=== PATIENT | female | born 1970 | race Caucasian/White ===

== ENCOUNTER → 2017-12-25 07:28 | Outpatient (CLI) | payer OTHER, SELFPAY ==
[2017-12-25 08:06] LABS: Basophils % 0.6 % (0.1-2.0); Eosinophils # 0.1 K/mm3 (0.0-0.4); Eosinophils % 1.7 % (0.1-12.0); Hematocrit 48.6 % (37.0-47.0); Hemoglobin 15.2 g/dL (12.2-16.2); Lymphocytes # 3.1 K/mm3 (0.7-4.5); Lymphocytes % 46.2 K/mm3 (10-50); Mean Corpuscular HGB Conc 31.3 g/dL (31.8-35.4); Mean Corpuscular Hemoglobin 30.1 pg (27.0-31.2); Mean Platelet Volume 8.7 fl (7.4-10.4); Monocytes # 0.3 K/mm3 (0.1-1.0); Monocytes % 4.9 % (1.7-9.3); Neutrophils # 3.2 K/mm3 (1.8-7.8); Neutrophils % 46.7 % (37.0-80.0); Platelet Count 245 K/mm3 (142-424); Red Blood Count 5.06 M/mm3 (4.20-5.40); Red Cell Distribution Width 13.1 % (11.5-17.5); White Blood Count 6.7 K/mm3 (4.8-10.8)
[2017-12-25 08:33] LABS: Alanine Aminotransferase 17 U/L (12-78); Albumin Level 3.9 gm/dL (3.4-5.0); Albumin/Globulin Ratio 1.3 (1.1-1.8); Alkaline Phosphatase 59 U/L (46-116); Anion Gap 11.5 mEq/L (5-15); Aspartate Amino Transferase 14 U/L (15-37); Bilirubin,Total 0.2 mg/dL (0.2-1.0); Blood Urea Nitrogen 17 mg/dL (7-18); Calcium 8.9 mg/dL (8.5-10.1); Carbon Dioxide 28 mmol/L (21.0-32.0); Chloride 105 mmol/L (98-107); Chol/HDL Ratio 4.9 (1-3.5); Cholesterol 263 mg/dL (140-200); Creatinine,Serum 0.89 mg/dL (0.55-1.02); Estimated Glomerular Filt Rate 68 ml/min (>60); GFR (African American) 83 ML/MIN (>60); Globulin 3.1 gm/dl (1.3-3.2); Glucose 93 mg/dL (74-106); HDL Cholesterol 54 mg/dL (29-89); LDL Cholesterol 194 mg/dL (0-130); Potassium 4.5 mmoL/L (3.5-5.1); Sodium 140 mmol/L (136-145); Triglycerides 74 mg/dL (30-200); VLDL Cholesterol 15 mg/dL (0-40)
[2017-12-26 20:05] LABS: Vitamin B12 250 pg/mL (232-1245); Vitamin D 25 Hydroxy 16.5 ng/mL (30.0-100.0)
== END ==
PROVIDERS: Referring Provider Internal Medicine Adolescent Medicine; Visit Provider Internal Medicine Adolescent Medicine
DX: Z00.00 Encounter for general adult medical examination without abnormal findings (principal); E53.8 Deficiency of other specified B group vitamins; E55.9 Vitamin D deficiency, unspecified
CPT/HCPCS: 36415; 80053; 80061; 82607; 82652; 85025

== ENCOUNTER → 2017-12-26 12:56 | Outpatient (CLI) | payer OTHER, SELFPAY ==
--- NOTE | 2017-12-26 | XR_ITS ---
XR knee RT 3V HISTORY: ITS.REASON: RT ANTERIOR KNEE PAIN ORDERING PHYSICIAN: Rigoberto Gonzales MD PATIENT AGE: 47 years COMPARISON: None FINDINGS: No fracture or dislocation. No lytic or blastic change. Normal mineralization. No significant arthritic changes evident. No other significant findings IMPRESSION: Negative Knee
== END ==
PROVIDERS: PCP Internal Medicine Adolescent Medicine; Visit Provider Internal Medicine Adolescent Medicine
DX: M25.561 Pain in right knee (principal)
CPT/HCPCS: 73562

== ENCOUNTER → 2018-04-24 07:10 | Outpatient (CLI) | payer OTHER, SELFPAY ==
[2018-04-24 08:13] LABS: Basophils % 0.5 % (0.1-2.0); Eosinophils # 0.2 K/mm3 (0.0-0.4); Eosinophils % 2.2 % (0.1-12.0); Hematocrit 44.1 % (37.0-47.0); Hemoglobin 14.1 g/dL (12.2-16.2); Lymphocytes # 2.9 K/mm3 (0.7-4.5); Lymphocytes % 40.6 K/mm3 (10-50); Mean Corpuscular Hemoglobin 30.4 pg (27.0-31.2); Mean Corpuscular Volume 94.9 fl (81-99); Mean Platelet Volume 8.7 fl (7.4-10.4); Monocytes # 0.3 K/mm3 (0.1-1.0); Monocytes % 4.6 % (1.7-9.3); Neutrophils # 3.7 K/mm3 (1.8-7.8); Platelet Count 228 K/mm3 (142-424); Red Blood Count 4.64 M/mm3 (4.20-5.40); Red Cell Distribution Width 12.9 % (11.5-17.5); White Blood Count 7.2 K/mm3 (4.8-10.8)
[2018-04-24 08:50] LABS: Alanine Aminotransferase 24 U/L (12-78); Albumin Level 4.2 gm/dL (3.4-5.0); Albumin/Globulin Ratio 1.4 (1.1-1.8); Alkaline Phosphatase 67 U/L (46-116); Anion Gap 12.4 mEq/L (5-15); Aspartate Amino Transferase 17 U/L (15-37); Bilirubin,Total 0.4 mg/dL (0.2-1.0); Blood Urea Nitrogen 16 mg/dL (7-18); Carbon Dioxide 29 mmol/L (21.0-32.0); Chloride 104 mmol/L (98-107); Chol/HDL Ratio 2.5 (1-3.5); Cholesterol 161 mg/dL (140-200); Estimated Glomerular Filt Rate 77 ml/min (>60); GFR (African American) 93 ML/MIN (>60); Globulin 3.1 gm/dl (1.3-3.2); Glucose 86 mg/dL (74-106); HDL Cholesterol 64 mg/dL (29-89); LDL Cholesterol 88 mg/dL (0-130); Potassium 4.4 mmoL/L (3.5-5.1); Sodium 141 mmol/L (136-145); Total Protein,Serum 7.3 gm/dL (6.4-8.2); Triglycerides 44 mg/dL (30-200); VLDL Cholesterol 9 mg/dL (0-40)
[2018-04-25 10:21] LABS: Vitamin B12 464 pg/mL (232-1245); Vitamin D 25 Hydroxy 78.8 ng/mL (30.0-100.0)
== END ==
PROVIDERS: PCP Internal Medicine Adolescent Medicine; Visit Provider Internal Medicine Adolescent Medicine
DX: Z00.00 Encounter for general adult medical examination without abnormal findings (principal); E78.5 Hyperlipidemia, unspecified; E53.8 Deficiency of other specified B group vitamins; E55.9 Vitamin D deficiency, unspecified
CPT/HCPCS: 36415; 80053; 80061; 82607; 82652; 85025

== ENCOUNTER → 2019-01-01 12:05 | Outpatient (CLI) | payer BC, SELFPAY ==
--- NOTE | 2019-01-01 12:14 | XR_ITS ---
XR ribs LT 2V HISTORY: ORDERING PHYSICIAN: Rigoberto Gonzales MD PATIENT AGE: 48 years Comparison: None FINDINGS: Bone density is normal without acute fracture, pleural effusion or pneumothorax. Impression: Normal plain film exam of the left ribs.
--- NOTE | 2019-01-01 12:14 | XR_ITS ---
XR ribs RT 2V HISTORY: ITS.REASON: S/P FALL, STERNAL PAIN, CHEST WALL PAIN ORDERING PHYSICIAN: Rigoberto Gonzales MD PATIENT AGE: 48 years Comparison: None FINDINGS: Bone density is normal without acute fracture and there is no evidence of pleural effusion or pneumothorax. Impression: Normal plain film exam of the right ribs.
--- NOTE | 2019-01-01 12:14 | XR_ITS ---
XR sternum min 2V CLINICAL INDICATION: ITS.REASON: S/P FALL, STERNAL PAIN, CHEST WALL PAIN ORDERING PHYSICIAN: Rigoberto Gonzales MD PATIENT AGE: 48 years Comparison: None FINDINGS: Bone density appears normal. There is subtle haziness over the xiphoid process area on the lateral view and part of this is related to the extrathoracic soft tissues related to the breast. There is no definite osseous lesion or fracture. On the oblique views the sternoclavicular joint areas appear to be normal. IMPRESSION: No definite plain film abnormality of the sternum although there is some haziness over the xiphoid area the lateral view likely from extrathoracic soft tissues. If symptoms persist however consider CT scan of the sternum if necessary.
--- NOTE | 2019-01-01 12:14 | XR_ITS ---
XR chest 2V HISTORY: ITS.REASON: S/P FALL, STERNAL PAIN, CHEST WALL PAIN ORDERING PHYSICIAN: Rigoberto Gonzales MD PATIENT AGE: 48 years COMPARISON: 11/20/2012. FINDINGS: The cardiomediastinal silhouette and pulmonary vascularity are within normal limits. The lungs are clear without infiltrates, suspicious nodules, or pleural effusions. No acute bony abnormalities. IMPRESSION: Negative chest, no acute finding
== END ==
PROVIDERS: PCP Internal Medicine Adolescent Medicine; Visit Provider Internal Medicine Adolescent Medicine
DX: R07.89 Other chest pain (principal)
CPT/HCPCS: 71046; 71100; 71120

== ENCOUNTER → 2019-05-31 10:08 | Outpatient (CLI) | payer BC, SELFPAY ==
[2019-05-31 10:44] LABS: Basophils % 0.4 % (0.1-2.0); Eosinophils # 0.1 K/mm3 (0.0-0.4); Eosinophils % 1.1 % (0.1-12.0); Hematocrit 44.4 % (37.0-47.0); Hemoglobin 14.2 g/dL (12.2-16.2); Lymphocytes # 2.8 K/mm3 (0.7-4.5); Mean Corpuscular Hemoglobin 31.2 pg (27.0-31.2); Mean Corpuscular Volume 97.6 fl (81-99); Mean Platelet Volume 8.5 fl (7.4-10.4); Monocytes # 0.2 K/mm3 (0.1-1.0); Monocytes % 3.5 % (1.7-9.3); Neutrophils # 3.7 K/mm3 (1.8-7.8); Platelet Count 240 K/mm3 (142-424); Red Blood Count 4.55 M/mm3 (4.20-5.40); Red Cell Distribution Width 12.9 % (11.5-17.5); White Blood Count 6.8 K/mm3 (4.8-10.8)
[2019-05-31 11:41] LABS: Alanine Aminotransferase 23 U/L (12-78); Albumin/Globulin Ratio 1.4 (1.1-1.8); Alkaline Phosphatase 61 U/L (46-116); Anion Gap 10.5 mEq/L (5-15); Aspartate Amino Transferase 21 U/L (15-37); Bilirubin,Total 0.4 mg/dL (0.2-1.0); Blood Urea Nitrogen 16 mg/dL (7-18); Calcium 9.1 mg/dL (8.5-10.1); Carbon Dioxide 29 mmol/L (21.0-32.0); Chloride 104 mmol/L (98-107); Chol/HDL Ratio 2.5 (1-3.5); Cholesterol 164 mg/dL (140-200); Creatinine,Serum 0.85 mg/dL (0.55-1.02); Estimated Glomerular Filt Rate 71 ml/min (>60); GFR (African American) 86 ML/MIN (>60); Globulin 2.9 gm/dl (1.3-3.2); Glucose 85 mg/dL (74-106); HDL Cholesterol 65 mg/dL (29-89); LDL Cholesterol 89 mg/dL (0-130); Potassium 4.5 mmoL/L (3.5-5.1); Sodium 139 mmol/L (136-145); Total Protein,Serum 6.9 gm/dL (6.4-8.2); Triglycerides 52 mg/dL (30-200); VLDL Cholesterol 10 mg/dL (0-40)
[2019-06-01 11:28] LABS: Vitamin B12 335 pg/mL (232-1245)
== END ==
PROVIDERS: Visit Provider Internal Medicine Adolescent Medicine
DX: E78.5 Hyperlipidemia, unspecified (principal); E53.8 Deficiency of other specified B group vitamins
CPT/HCPCS: 36415; 80053; 80061; 82607; 85025

== ENCOUNTER 2020-02-26 16:10 | Emergency (ER) | payer BC, SELFPAY ==
[2020-02-26 16:25] VITALS: BP 120/75; PULSE 99; RESP 19; TEMP 36.7; O2SAT 100; BMI 21.1
--- NOTE | 2020-02-26 16:34 | HMH.EDUTC ---
[facility] [place] Clinical Impression: Allergic rhinitis Qualifiers: Allergic rhinitis trigger: unspecified Allergic rhinitis seasonality: unspecified Qualified Code(s): J30.9 - Allergic rhinitis, unspecified Disposition: Home, Self-Care Condition on Discharge: Good Instructions: Allergic Rhinitis, DI for Allergic Rhinitis, Fluticasone Nasal [place] Additional Instructions: *Monitor Temp, Over the counter Motrin or Tylenol as directed/as needed Tylenol every 4 hours and Motrin every 6 hours (as long as your family doctor has told you that you can take it) for fever or pain. and straight to ER if unable to lower temp less than 101.0 after medication given *Warm salt water gargles may help to soothe the throat *Throat Lozenges *Warm fluids like tea with honey may help to soothe the throat *Sleep elevated *Humidifier/Vaporizer *Flonase 2 sprays in each nostril daily but be aware that it may take 2-3 days before you notice improvement Your throat swab was sent for culture. Those results are typically sent to your primary care. Be sure to follow up in 2-3 days with your family doctor/primary care physician if no improvement so they can review those result and treat if necessary. If you don?t have a primary care doctor, I recommend you get one but in the mean time, you will have to return to a walk in clinic Follow up IMMEDIATELY for new or worsening symptoms or no Noticeable improvement over the next 48-72 hours. 911 for difficulty breathing or swallowing Prescriptions: Fluticasone Propionate [Flonase 50mcg nasal spray 16gm] 1 - 2 spr NS DAILY #1 bottle Transmission Status: Received by [facility] #[id number] Referrals: Rigoberto Gonzales MD [Primary Care Provider] - As needed Time of Disposition: 16:52 Medical Decision Making - Zeus Inquiry Pt receiving controlled substance: No Zeus was queried for this patient: No Vital Signs: 02/26/20 16:25 Temperature 98.1 F Temperature Source Oral Pulse Rate [Radial] 99 H Respiratory Rate 19 Blood Pressure [Right Arm] 120/75 Blood Pressure Mean [Right Arm] 90 Blood Pressure Source [Right Arm] Automatic Cuff Blood Pressure Position [Right Arm] Sitting 02 Sat by Pulse Oximetry 100 Oxygen Delivery Method Room Air - Lab Data Lab results reviewed: Yes: I reviewed the patient's lab results. Lab Results 02/26/20 16:14: Strep Scn Rapid Clinic Negative Orders (Tests/Meds): ORDERS Category Date Time Status Strep Screen Confirmation Stat Micro 02/26/20 16:14 [place] [facility] [place] - General Stated complaint: strep throat Time Seen by Provider: 02/26/20 16:34 Mode of Arrival: Ambulatory Source of Information: Patient Limitations: No Limitations Description of Symptoms (Recalled from Triage Doc. by RN): sore throat x 1 week. HEENT Symptoms (Recalled from RN notes): Yes Resp Symptoms (Recalled from RN notes): No Skin Symptoms (Recalled from RN notes): No MS Symptoms (Recalled from RN notes): No Functional Status (Recalled from RN notes): wnl - History of Present Illness Provider Complaint: Patient states that she has been having sore throat for over a week States that her oldest son was dx with strep throat earlier today and she was worried that she may have it too States that she hasnt had a fever that she was aware of - Related Data Previous Rx's Medication Instructions Recorded Fluticasone Propionate [Flonase 1 - 2 spr NS DAILY #1 bottle 02/26/20 50mcg nasal spray 16gm] Allergies Allergy/AdvReac Type Severity Reaction Status Date / Time Penicillins Allergy Verified 06/24/19 16:29 - Worker's Comp Is this a Worker's Comp case?: No [facility] History - Hepatitis A Screen Drug use history?: No High risk sexual behaviors?: No History of sexually transmitted infection?: No Currently employed?: No Childcare worker?: No Do you have indoor plumbing?: Yes Do you have electricity?: Yes Attestation statement:: This patient has been screened
[2020-02-26 16:56] LABS: UTC Strep Screen (Rapid) Negative (Negative)
[2020-02-26 17:03] VITALS: BP 120/75; PULSE 99; RESP 19; TEMP 36.7; O2SAT 100
== END 2020-02-26 17:06 | disposition home or self-care (01) ==
PROVIDERS: Emergency Provider Nurse Practitioner; PCP Internal Medicine Adolescent Medicine
DX: J30.9 Allergic rhinitis, unspecified (principal); Z88.0 Allergy status to penicillin; F17.210 Nicotine dependence, cigarettes, uncomplicated
CPT/HCPCS: 87880; 99201

== ENCOUNTER → 2020-09-01 07:39 | Outpatient (CLI) | payer BC, SELFPAY ==
[2020-09-01 08:05] LABS: Basophils # 0.1 K/mm3 (0-0.2); Basophils % 0.8 % (0.1-2.0); Eosinophils # 0.1 K/mm3 (0.0-0.4); Eosinophils % 1.6 % (0.1-12.0); Hematocrit 45.5 % (37.0-47.0); Hemoglobin 14.4 g/dL (12.2-16.2); Lymphocytes # 2.7 K/mm3 (0.7-4.5); Lymphocytes % 44.3 % (10-50); Mean Corpuscular HGB Conc 31.7 g/dL (31.8-35.4); Mean Corpuscular Hemoglobin 31.3 pg (27.0-31.2); Mean Corpuscular Volume 98.7 fl (81-99); Mean Platelet Volume 8.7 fl (7.4-10.4); Monocytes # 0.3 K/mm3 (0.1-1.0); Monocytes % 4.7 % (1.7-9.3); Neutrophils % 48.6 % (37.0-80.0); Platelet Count 260 K/mm3 (142-424); Red Blood Count 4.61 M/mm3 (4.20-5.40); Red Cell Distribution Width 13.4 % (11.5-17.5); White Blood Count 6.1 K/mm3 (4.8-10.8)
[2020-09-01 08:39] LABS: Alanine Aminotransferase 23 U/L (12-78); Albumin Level 4.5 g/dl (3.5-5.0); Albumin/Globulin Ratio 1.7 (1.1-1.8); Alkaline Phosphatase 58 U/L (38-126); Anion Gap 9.5 mEq/L (5-15); Aspartate Amino Transferase 30 U/L (14-36); Bilirubin,Total 0.5 mg/dl (0.2-1.3); Blood Urea Nitrogen 15 mg/dl (7-17); Calcium 9.5 mg/dl (8.4-10.2); Carbon Dioxide 29 mmol/L (22.0-30.0); Chloride 107 mmol/L (98-107); Chol/HDL Ratio 2.2 (1-3.5); Cholesterol 154 mg/dl (140-200); Estimated Glomerular Filt Rate 67 ml/min (>60); GFR (African American) 81 ML/MIN (>60); Globulin 2.6 g/dL (1.3-3.2); Glucose 95 mg/dl (74-100); HDL Cholesterol 71 mg/dl (40-60); Potassium 4.5 mmoL/L (3.5-5.1); Sodium 141 mmol/L (136-145); Total Protein,Serum 7.1 g/dl (6.3-8.2); Triglycerides 60 mg/dl (30-150); VLDL Cholesterol 12 mg/dL (0-40)
[2020-09-01 08:50] LABS: Direct LDL Cholesterol 64.93 mg/dL (100-129)
[2020-09-01 08:56] LABS: 25-OH Vitamin D, Total 24.5 ng/mL (30-100)
[2020-09-01 09:29] LABS: Vitamin B12 411 pg/mL (239-931)
== END ==
PROVIDERS: Visit Provider Internal Medicine Adolescent Medicine
DX: E78.5 Hyperlipidemia, unspecified (principal); E53.8 Deficiency of other specified B group vitamins; E55.9 Vitamin D deficiency, unspecified
CPT/HCPCS: 36415; 80053; 80061; 82306; 82607; 85025

== ENCOUNTER → 2021-08-13 12:26 | Outpatient (CLI) | payer BC, SELFPAY ==
[2021-08-14 10:43] LABS: Covid-19 Nasal PCR Sendout Lex POSITIVE
== END ==
PROVIDERS: PCP Internal Medicine Adolescent Medicine; Visit Provider Nurse Practitioner
DX: U07.1 COVID-19 (principal)
CPT/HCPCS: C9803; U0004; U0005

== ENCOUNTER 2021-11-02 12:07 | Emergency (ER) | payer BC, SELFPAY ==
[2021-11-02 12:10] VITALS: BP 131/86; PULSE 64; RESP 18; TEMP 36.8; O2SAT 99; BMI 25.8
--- NOTE | 2021-11-02 12:17 | XR_ITS ---
FINAL REPORT CLINICAL HISTORY: left ankle sprain FINDINGS: LEFT ANKLE Three views were obtained. There is no acute fracture or dislocation. The joint spaces appear normal. The mortise is intact. No soft tissue abnormality is identified. IMPRESSION: No acute process. Reviewed, Interpreted and Dictated by Colin Michelle MD Transcribed by Karon Cummins Authenticated by Colin Michelle MD on 11/02/2021 01:26:58 PM [facility]
--- NOTE | 2021-11-02 12:17 | XR_ITS ---
FINAL REPORT CLINICAL HISTORY: left ankle sprain FINDINGS: LEFT FOOT Three views were obtained. There is no acute fracture or dislocation. The joint spaces appear normal. No soft tissue abnormality is identified. IMPRESSION: No acute process. Reviewed, Interpreted and Dictated by Colin Michelle MD Transcribed by Karon Cummins Authenticated by Colin Michelle MD on 11/02/2021 01:27:02 PM [facility]
[2021-11-02 12:18] VITALS: BP 131/86; PULSE 72; RESP 18; O2SAT 99
--- NOTE | 2021-11-02 12:20 | HMH.EDGENADL ---
ED Disposition Clinical Impression: Ankle sprain and strain Disposition: Home, Self-Care Condition on Discharge: Good Referrals: Rigoberto Gonzales MD [Primary Care Provider] - - Critical Care Critical Care Time: No Attestation: On , the high probability of a clinically significant, sudden or life threatening deterioration of the following system(s) required my full and direct attention, intervention and personal management. The time I documented below is in addition to time spent performing reported procedures but includes the following listed in this critical care notation. Medical Decision Making - Medical Records Medical records reviewed: Yes: I reviewed the patient's medical records. - Zeus Inquiry Pt receiving controlled substance: No Vital Signs: 11/02/21 12:10 11/02/21 12:18 11/02/21 13:00 Temperature 98.2 F Temperature Source Oral Pulse Rate 72 69 Pulse Rate [Left Radial] 64 Respiratory Rate 18 18 18 Blood Pressure 131/86 134/82 Blood Pressure [Right Arm] 131/86 Blood Pressure Mean 96 Blood Pressure Mean [Right Arm] 101 Blood Pressure Source [Right Arm] Automatic Cuff Blood Pressure Position [Right Arm] Sitting 02 Sat by Pulse Oximetry 99 99 99 Oxygen Delivery Method Room Air Room Air Orders (Tests/Meds): ED MEDICATIONS Discontinued Medications Generic Name Dose Route Start Last Admin Trade Name Freq PRN Reason Stop Dose Admin Acetaminophen 1,000 mg 11/02/21 12:18 11/02/21 12:22 Acetaminophen 500mg Tab PO 11/02/21 12:19 1,000 mg ONCE ONE Administration - Radiology Data #1 Image(s): Ankle Image Reviewed: Yes I reviewed the patient's radiology results FINDINGS: LEFT FOOT Three views were obtained. There is no acute fracture or dislocation. The joint spaces appear normal. No soft tissue abnormality is identified. IMPRESSION: No acute process. Reviewed, Interpreted and Dictated by Colin Michelle MD Transcribed by Karon Cummins Authenticated by Colin Michelle MD on 11/02/2021 01:27:[address] [facility] Medical Decision Narrative: 51-year-old female with no prior past medical history presenting to the ED with left ankle pain after rolling her ankle. Differential diagnoses include ankle sprain, ankle fracture/dislocation, metatarsal injury, contusion, musculoskeletal strain. Given this work-up will include physical exam, x-ray of the left ankle and left foot. Labs not indicated. She is given 1 g of Tylenol for pain. On exam she has intact range of motion, mild swelling over the lateral malleoli, neurovascularly intact. X-ray with no acute osseous abnormalities in the ankle/foot. Patient is able to ambulate with no assistance, this point she is okay for discharge. We will have her ice ankle and take Tylenol/Motrin as needed for pain. General Adult HPI - General Stated complaint: ao left foot fell at home having painapp. 1 hr ago Time Seen by Provider: 11/02/21 12:20 Mode of Arrival: Ambulatory Source of Information: Patient - History of Present Illness HPI narrative: 51-year-old female with relatively no past medical history presenting to the ED with left ankle pain after rolling her ankle. Patient states that she was wearing a long dress and accidentally tripped on this. She did fall all the way to the ground however did not lose consciousness. She is complaining of pain over her left ankle and left midfoot. She is neurovascularly intact, she does not have any obvious deformity or swelling, range of motion is intact. She does not have any pain in her tibia/fibular region. She does not have any other injuries, she does not take any medications prior to arrival. Vital signs are stable. - Related Data Allergies Allergy/AdvReac Type Severity Reaction Status Date / Time Penicillins Allergy Verified 11/02/21 12:21 [facility] History - Hepatitis A Screen Attestation statement:: This patient has been screened for
[2021-11-02 13:00] VITALS: BP 134/82; PULSE 69; RESP 18; O2SAT 99
[2021-11-02 14:31] VITALS: BP 130/78; PULSE 68; RESP 16; TEMP 36.8; O2SAT 99
== END 2021-11-02 14:33 | disposition home or self-care (01) ==
PROVIDERS: Emergency Provider Emergency Medicine; PCP Internal Medicine Adolescent Medicine
DX: S93.402A Sprain of unspecified ligament of left ankle, initial encounter (principal); W01.0XXA Fall on same level from slipping, tripping and stumbling without subsequent striking against object, initial encounter; Y92.019 Unspecified place in single-family (private) house as the place of occurrence of the external cause; Z88.0 Allergy status to penicillin
CPT/HCPCS: 73610; 73630; 99283

== ENCOUNTER → 2022-03-19 14:44 | Outpatient (POV) | payer SELFPAY | PROVIDERS: Visit Provider Dermatology | DX: Z00.00 Encounter for general adult medical examination without abnormal findings (principal) ==

== ENCOUNTER → 2022-05-14 08:42 | Outpatient (POV) | payer SELFPAY | PROVIDERS: Visit Provider Dermatology | DX: Z00.00 Encounter for general adult medical examination without abnormal findings (principal) ==

== ENCOUNTER → 2022-05-28 12:57 | Outpatient (CLI) | payer BC, SELFPAY ==
[2022-06-07 09:35] LABS: Antinuclear Antibodies (ANA) NEGATIVE
== END ==
PROVIDERS: PCP Internal Medicine Adolescent Medicine; Visit Provider Dermatology
DX: R52 Pain, unspecified (principal)
CPT/HCPCS: 36415; 86038

== ENCOUNTER → 2023-02-12 11:06 | Outpatient (CLI) | payer BC, SELFPAY ==
[2023-02-12 11:29] LABS: Basophils % 0.5 % (0.1-2.0); Eosinophils # 0.1 K/mm3 (0.0-0.4); Eosinophils % 1.5 % (0.1-12.0); Hematocrit 49.9 % (37.0-47.0); Hemoglobin 15.9 g/dL (12.2-16.2); Lymphocytes # 2.9 K/mm3 (0.7-4.5); Lymphocytes % 41.2 % (10-50); Mean Corpuscular HGB Conc 31.8 g/dL (31.8-35.4); Mean Corpuscular Hemoglobin 30.6 pg (27.0-31.2); Mean Corpuscular Volume 96.5 fl (81-99); Mean Platelet Volume 9.4 fl (7.4-10.4); Monocytes # 0.4 K/mm3 (0.1-1.0); Neutrophils # 3.7 K/mm3 (1.8-7.8); Neutrophils % 51.9 % (37.0-80.0); Platelet Count 232 K/mm3 (142-424); Red Blood Count 5.17 M/mm3 (4.20-5.40); Red Cell Distribution Width 13.2 % (11.5-17.5); White Blood Count 7.1 K/mm3 (4.8-10.8)
[2023-02-12 13:04] LABS: Alanine Aminotransferase 24 U/L (12-78); Albumin Level 4.6 g/dl (3.5-5.0); Albumin/Globulin Ratio 1.8 (1.1-1.8); Alkaline Phosphatase 80 U/L (38-126); Anion Gap 11.4 mEq/L (5-15); Aspartate Amino Transferase 29 U/L (14-36); Bilirubin,Total 0.4 mg/dl (0.2-1.3); Blood Urea Nitrogen 12 mg/dl (7-17); Calcium 9.6 mg/dl (8.4-10.2); Carbon Dioxide 29 mmol/L (22.0-30.0); Chloride 104 mmol/L (98-107); Chol/HDL Ratio 3.2 (1-3.5); Cholesterol 178 mg/dl (140-200); Estimated Glomerular Filt Rate 75 ml/min (>60); GFR (African American) 91 ML/MIN (>60); Globulin 2.6 g/dL (1.3-3.2); Glucose 92 mg/dl (74-100); HDL Cholesterol 55 mg/dl (40-60); Potassium 4.4 mmoL/L (3.5-5.1); Sodium 140 mmol/L (136-145); Total Protein,Serum 7.2 g/dl (6.3-8.2); Triglycerides 132 mg/dl (30-150); VLDL Cholesterol 26 mg/dL (0-40)
[2023-02-12 13:19] LABS: Direct LDL Cholesterol 87.31 mg/dL (100-129)
[2023-02-12 13:29] LABS: 25-OH Vitamin D, Total 30.5 ng/mL (30-100)
[2023-02-12 14:02] LABS: Vitamin B12 353 pg/mL (239-931)
== END ==
PROVIDERS: PCP Internal Medicine Adolescent Medicine; Visit Provider Internal Medicine Adolescent Medicine
DX: E78.5 Hyperlipidemia, unspecified (principal); E53.8 Deficiency of other specified B group vitamins; E55.9 Vitamin D deficiency, unspecified
CPT/HCPCS: 36415; 80053; 80061; 82306; 82607; 85025

== ENCOUNTER 2023-12-26 06:27 | Day surgery (SDC) | payer BC, SELFPAY ==
[2023-12-24 10:53] VITALS: BMI 25.5
[2023-12-26 06:44] VITALS: BP 116/84; PULSE 86; RESP 16; TEMP 36.3; O2SAT 97
[2023-12-26] MEDS: LACTATED RINGERS 1000ML 1,000 ML 25 ML IV (06:55)
--- NOTE | 2023-12-26 07:10 | P.PNANES_ITS ---
[facility] Disclaimer: The information contained in this section may have been updated after the patient was seen, as this information can be updated by other users. Medical History Dermatitis History of COVID-19 Migraine Osteoporosis Hyperlipidemia Family History Other Stroke Social History Smoking Status: Current every day smoker tobacco type: cigarettes packs per day: 1 second hand exposure: Yes alcohol intake: current substance use type: denies use current occupational status: employed Travel in the last 8 weeks: Inside the [place] housing: house caffeine: Yes [facility] Anesthesia Checklist Patient Identification Patient Identification: Arm Band and Verbal (Name & ) Structural Data Admitted From: Home Planned Operative Procedure/s: Colonoscopy Consent for Planned Operative Procedure(s) Verified: Yes Verified Documents: Surgical Consent NPO Status Verified Time NPO: 05:00 (two sips of black coffee with sugar ) Additional verifications Anesthesia Reactions: No Airway Assessment Mallampati Score:: Class II C-Spine Mobility Assessed: Yes TMJ Mobility Assessed: Yes Dentition: Good Dentition Neurological Assessment Level of Consciousness: Awake Numbness or tingling in extremities: No Anesthesia Plan Anesthesia Risk discussed: Yes Anesthesia Plan: Verified ASA Class: II Anesthesia Type: MAC
--- NOTE | 2023-12-26 08:19 | P.PCN_ITS ---
Procedure: Date: 12/26/23 Patient Date of :: 1970 Procedure Performed:: Total colonoscopy to terminal ileum with polypectomy Indications:: Patient is a 53-year-old female referred for initial screening colonoscopy Performing Provider:: Balwinder Reis MD Referring Provider:: Rigoberto Gonzales MD Sedation:: MAC sedation Procedure:: Patient history was obtained and appropriate physical examination was performed. Patient's medications and allergies were reviewed. Informed consent was obtained after explaining the benefits, alternatives, and risks of the procedure including, but not limited to, bleeding, perforation, missed lesions, and adverse reaction to anesthesia medications. Patient was transported to endoscopy procedure room. Patient was connected to monitoring devices. Throughout the procedure the patient's blood pressure, pulse, and oxygen saturations were monitored continuously. Patient identification and planned procedure were verified by the staff. Patient was positioned in lateral decubitus position. Digital anorectal exam was performed. Variable stiffness Olympus colonoscope was inserted and advanced under direct visualization to the cecum. Adequacy of the colonic prepa ration was noted. The colonoscope was advanced a short distance into the terminal ileum. The colonoscope was then slowly withdrawn while carefully examining the color, texture, anatomy, and integrity of the mucosoa circumferentially. Within the rectum retroflexion was performed. Colonoscope was then withdrawn. Impression: Colonic preparation was good. In the ascending colon there were a couple of adjacent relatively complex appearing ridge polyps. 1 of these was removed with cold snare. Adjacent to this there was a larger sessile polyp removed seemingly in its entirety with hot snare. In the rectosigmoid region there were 3 polyps. A couple of these appeared to be potentially adenomatous versus hyperplastic prolapsing polyps. These were removed with cold snare. She had some sigmoid diverticulosis. . Findings:: Sessile ridge polyp x 2 ascending colon Rectosigmoid polyp x 3 Sigmoid diverticulosis . Recommendations:: Follow-up colonoscopy pending pathology. Possibly as early as 1 year given the complex ridge polyp in the ascending colon to rule out early recurrence and ensu re complete polypectomy. Complications:: None immediately apparent Estimated blood obtained (mL): 1 Colonoscopy Component Colonoscopy Component Was a colonoscopy performed during today's procedure?: Yes Recommended follow up colonoscopy of at least 10 years?: No If no, follow up colonoscopy recommended in ___ years?: 1 Reason for not recommending >/= 10 yr follow-up interval?: See above
[2023-12-26 08:24] VITALS: BP 109/67; PULSE 104; RESP 15; TEMP 36.4; O2SAT 97
[2023-12-26 08:34] VITALS: BP 103/65; PULSE 96; RESP 15; O2SAT 98
[2023-12-26 08:44] VITALS: BP 108/70; PULSE 82; RESP 15; O2SAT 100
[2023-12-26 08:54] VITALS: BP 107/69; PULSE 91; RESP 16; O2SAT 100
== END 2023-12-26 08:54 | disposition home or self-care (01) ==
PROVIDERS: PCP Internal Medicine Adolescent Medicine; Visit Provider Surgery
PROC: 0DJD8ZZ Inspection of Lower Intestinal Tract, Via Natural or Artificial Opening Endoscopic (ICD-10-PCS; CPT 45385; principal; 2023-12-26 07:30)
DX: Z12.11 Encounter for screening for malignant neoplasm of colon (principal); K62.1 Rectal polyp; D12.2 Benign neoplasm of ascending colon; K57.30 Diverticulosis of large intestine without perforation or abscess without bleeding
CPT/HCPCS: 45385; J2704; J7120

== ENCOUNTER 2024-06-28 06:49 | Outpatient (CLI) | payer BC, SELFPAY ==
--- NOTE | 2024-06-28 06:55 | CT_ITS ---
FINAL REPORT TECHNIQUE: Axial CT images of the chest were obtained without contrast. Low-dose protocol was utilized. This study was performed with techniques to keep radiation doses as low as reasonably achievable (ALARA). Individualized dose reduction techniques using automated exposure control or adjustment of mA and/or kV according to the patient's size were employed. CLINICAL HISTORY: TOBACCA USE CURRENT SMOKER 1PPD X39 YEARS COMPARISON: none FINDINGS: CT CHEST WITHOUT, LOW DOSE SCREENING CT Di Vol: 2.90 mGy DLP: 103.42 mGy*cm There is no axillary, mediastinal, or hilar adenopathy. The heart size is normal. There is no pleural or pericardial effusion. The lung windows show no suspicious mass or nodule. Underlying emphysema is noted. Limited images of the upper abdomen demonstrate no acute findings. IMPRESSION: No suspicious mass or nodule. LR Category 1: 12 month follow-up low-dose chest CT is recommended per Fleischner criteria. Reviewed, Interpreted and Dictated by Danitza Catalan MD Transcribed by Ember Staton Authenticated and [facility]
[2024-06-28 07:56] LABS: Alanine Aminotransferase 24 U/L (12-78); Albumin Level 4.3 g/dl (3.5-5.0); Albumin/Globulin Ratio 1.9 (1.1-1.8); Alkaline Phosphatase 61 U/L (38-126); Anion Gap 6.6 mEq/L (5-15); Aspartate Amino Transferase 31 U/L (14-36); Bilirubin,Total 0.5 mg/dl (0.2-1.3); Blood Urea Nitrogen 15 mg/dl (7-17); Calcium 9.7 mg/dl (8.4-10.2); Carbon Dioxide 30 mmol/L (22.0-30.0); Chloride 108 mmol/L (98-107); Chol/HDL Ratio 2.8 (1-3.5); Cholesterol 158 mg/dl (140-200); Estimated Glomerular Filt Rate 65 ml/min (>60); GFR (African American) 79 ML/MIN (>60); Globulin 2.3 g/dL (1.3-3.2); Glucose 90 mg/dl (74-100); HDL Cholesterol 57 mg/dl (40-60); Potassium 4.6 mmoL/L (3.5-5.1); Sodium 140 mmol/L (136-145); Total Protein,Serum 6.6 g/dl (6.3-8.2); Triglycerides 86 mg/dl (30-150); VLDL Cholesterol 17 mg/dL (0-40)
[2024-06-28 08:34] LABS: Direct LDL Cholesterol 75.32 mg/dL (100-129)
[2024-06-28 09:28] LABS: Hematocrit 45.3 % (37.0-47.0); Hemoglobin 15.2 g/dL (12.2-16.2); Mean Corpuscular Volume 93.2 fl (81-99); Red Blood Count 4.86 M/mm3 (4.20-5.40); White Blood Count 6.5 K/mm3 (4.8-10.8)
[2024-06-28 09:29] LABS: Basophils % 0.5 % (0.1-2.0); Eosinophils # 0.1 K/mm3 (0.0-0.4); Eosinophils % 1.8 % (0.1-12.0); Lymphocytes # 2.9 K/mm3 (0.7-4.5); Lymphocytes % 43.9 % (10-50); Mean Corpuscular HGB Conc 33.6 g/dL (31.8-35.4); Mean Corpuscular Hemoglobin 31.3 pg (27.0-31.2); Monocytes # 0.4 K/mm3 (0.1-1.0); Monocytes % 6.1 % (1.7-9.3); Neutrophils # 3.1 K/mm3 (1.8-7.8); Neutrophils % 47.5 % (37.0-80.0); Platelet Count 234 K/mm3 (142-424); Red Cell Distribution Width 12.7 % (11.5-17.5)
[2024-06-28 09:41] LABS: Vitamin B12 340 pg/mL (239-931)
== END 2024-06-28 23:59 | disposition home or self-care (01) ==
PROVIDERS: PCP Internal Medicine Adolescent Medicine; Visit Provider Nurse Practitioner Family
DX: F17.210 Nicotine dependence, cigarettes, uncomplicated (principal); E55.9 Vitamin D deficiency, unspecified; E78.5 Hyperlipidemia, unspecified; E53.8 Deficiency of other specified B group vitamins
CPT/HCPCS: 36415; 71271; 80053; 80061; 82306; 82607; 85025

== ENCOUNTER 2025-02-18 06:27 | Day surgery (SDC) | payer BC, SELFPAY ==
[2025-02-15 14:19] VITALS: BMI 25.8
--- NOTE | 2025-02-18 06:12 | EXP.GEN.HP ---
HPI HPI HPI: Patient is a 55-year-old female who presents for colonoscopy. I had performed a initial screening colonoscopy on her on 12/26/2023. In the ascending colon there were a couple of adjacent relatively complex appearing the ridge polyps. 1 was removed with cold snare and the larger polyp removed seemingly in its entirety with hot snare. 1 of these was tubular adenoma and 1 was a sessile serrated lesion. In the rectosigmoid region there were 3 hyperplastic polyps removed with cold snare. She had sigmoid diverticulosis. Given the complex ridge polyp in the ascending colon recommendations were for follow-up colonoscopy in 1 year to ensure complete removal. . [facility] Disclaimer: The information contained in this section may have been updated after the patient was seen, as this information can be updated by other users. Medical History (Updated 02/18/25 @ 06:16 by Balwinder Reis MD) Dermatitis History of COVID-19 Migraine Osteoporosis Hyperlipidemia Surgical History (Updated 02/15/25 @ 14:14 by Daina Cuevas RN) Hx of colonoscopy Family History Other Stroke Social History (Updated 02/15/25 @ 14:14 by Daina Cuevas RN) Smoking Status: Current every day smoker tobacco type: cigarettes packs per day: 1 second hand exposure: Yes alcohol intake: current substance use type: denies use current occupational status: employed Travel in the last 8 weeks?: Outside the [facility] housing: house caffeine: Yes Contact w/someone who lives/traveled outside [place] past 30 days?: No Exposure to someone with infectious disease in past 14 days?: No Do you have a fever (greater than 100.4 F or 38 C)?: No Have you tested positive for COVID-19?: No Exposed to someone with COVID-19 in past 14 days?: No Do you have a sore throat?: No Do you have a cough?: No Do you have any weakness?: No Are you experiencing any nausea/vomitting?: No Do you have any diarrhea?: No Are you experiencing any unusual bleeding?: No Do you have any muscle aches/pain?: No Do you have any abdominal pain?: No Are you experiencing loss of taste or smell?: No Other Medical History Have you received the Flu Vaccine for this season: Yes Have you received the Pneumonia Vaccine: Yes Meds Home Medications and Allergies Home Medications ?Medication ?Instructions ?Recorded ?Confirmed ?Type sod picosulf 10 mg-magnes 3.5 175 ml PO DAILY 1 dose #350 mL 04/24/23 02/15/25 Rx gram-citric 12 gram/175 mL oral solution (Clenpiq) peg 3350-electrolytes 236 240 ml PO Q10M #4,000 mL 04/25/23 02/15/25 Rx gram-22.74 gram-6.74 gram-5.86 gram solution (Golytely) atorvastatin 80 mg tablet (Lipitor) 80 mg PO DAILY 12/24/23 02/15/25 History cholecalciferol (vitamin D3) 50 50 mcg PO DAILY 12/24/23 02/15/25 History mcg (2,000 unit) capsule (Vitamin D3) sodium,potassium,mag sulfates 17.5 See Rx Instructions PO .COMPLEX 01/24/25 02/15/25 Rx gram-3.13 gram-1.6 gram oral soln #354 mL (Suprep Bowel Prep Kit) vitamin B12 1,000 mcg-folic acid 1 tab sublingual DAILY 02/15/25 02/15/25 History 400 mcg sublingual tablet New Prescriptions to Start Prescriptions: Allergies Allergy/AdvReac Type Severity Reaction Status Date / Time Penicillins Allergy Hives Verified 02/15/25 14:12 Exam Data for Last 24 hours I & O for Last 24 hours: Intake & Output 02/15/25 02/16/25 02/17/25 02/18/25 11:59 11:59 11:59 11:59 Weight 170 lb Constitutional Constitutional: no acute distress *Routine HEENT Exam Head: Present normocephalic Eye: Present EOMI and PERRL ENT: Present mucous membranes moist *Routine Neck Exam Neck: Present supple; Absent lymphadenopathy *Routine Respiratory Exam Respiratory: Present CTA bilaterally *Routine Cardiovascular Exam Cardiovascular: Present RRR *Routine Abdominal Exam Abdominal: Present soft and normoactive bowel sounds; Absent tenderness *Routine Rectal Exam Rectal:: deferred *Routine Genitalia Exam Genitalia:: deferred *Routine Extremities Exam Extremities: Absent cyanosis, clubbing or edema *Routine Skin Exam Skin: Present warm; Absent rash *Routine Neurological Exam Neurological: Present alert and oriented X3 Assessment and Plan *Assessment and plan (1) Tubular adenoma of colon: Status: Acute Category: Medical Code(s): D12.6 - Benign neoplasm of colon, unspecified Plan Plan to proceed with follow-up colonoscopy. If no evidence of any recurrent polyps likely repeat colonoscopy 2 to 3 years given previous multiple adenomatous polyps
[2025-02-18 06:50] VITALS: BP 105/69; PULSE 65; RESP 18; TEMP 36.1; O2SAT 98
[2025-02-18] MEDS: LACTATED RINGERS 1000ML 1,000 ML 50 ML IV (07:03)
[2025-02-18 08:03] VITALS: BP 101/62; PULSE 66; RESP 16; TEMP 36.3; O2SAT 96
--- NOTE | 2025-02-18 08:05 | P.PCN_ITS ---
Procedure: Date: 02/18/25 Patient Date of :: 1970 Procedure Performed:: Total colonoscopy to terminal ileum with polypectomy Indications:: Patient is a 55-year-old female who presents for colonoscopy. I had performed a initial screening colonoscopy on her on 12/26/2023. In the ascending colon there were a couple of adjacent relatively complex appearing the ridge polyps. 1 was removed with cold snare and the larger polyp removed seemingly in its entirety with hot snare. 1 of these was tubular adenoma and 1 was a sessile serrated lesion. In the rectosigmoid region there were 3 hyperplastic polyps removed with cold snare. She had sigmoid diverticulosis. Given the complex ridge polyp in the ascending colon recommendations were for follow-up colonoscopy in 1 year to ensure complete removal. . Performing Provider:: Balwinder Reis MD Referring Provider:: Rigoberto Gonzales MD Sedation:: MAC sedation Procedure:: Patient history was obtained and appropriate physical examination was performed. Patient's medications and allergies were reviewed. Informed consent was obtained after explaining the benefits, alternatives, and risks of the procedure including, but not limited to, bleeding, perforation, missed lesions, and adverse reaction to anesthesia medications. Patient was transported to endoscopy procedure room. Patient was connected to monitoring devices. Throughout the procedure the patient's blood pressure, pulse, and oxygen saturations were monitored continuously. Patient identification and planned procedure were verified by the staff. Patient was positioned in lateral decubitus position. Digital anorectal exam was performed. Variable stiffness Olympus colonoscope was inserted and advanced under direct visualization to the cecum. Adequacy of the colonic preparation was noted. The colonoscope was advanced a short distance into the terminal ileum. The colonoscope was then slowly withdrawn while carefully examining the color, texture, anatomy, and integrity of the mucosoa circumferentially. Within the rectum retroflexion was performed. Colonoscope was then withdrawn. Impression: In the ascending colon, essentially adjacent to the ileocecal valve there was so me prominent somewhat nodular mucosa concerning for widespread sessile recurrent polyp. Majority of this was removed with cold snare. The residual tissue was removed in a piecemeal fashion using biopsy forceps and sent as specimen labeled residual polypoid tissue. Distal to this in the ascending colon there was another area of prominent mucosa. This was unable to be removed in its entirety with the snare. I was unclear if this was adenomatous. Biopsies were obtained and some tissue was removed with cold snare. This was sent as a ascending colon polyp #2. There is some sigmoid diverticulosis. . Findings:: Possible recurrent widespread polyp as noted above Diverticulosis Recommendations:: Follow-up colonoscopy and treatment will be pending pathology. If this is adenomatous, particularly the ascending colon polyp #2 tissue biopsies, likely will at least need early follow-up colonoscopy within several months. This may require evaluation with gastroenterology or colorectal surgery. She may ultimately require resection if this is recurrent adenomatous tissue. Complications:: None immediately apparent Estimated blood obtained (mL): 2 Colonoscopy Component Colonoscopy Component Was a colonoscopy performed during today's procedure?: Yes Recommended follow up colonoscopy of at least 10 years?: No If no, follow up colonoscopy recommended in ___ years?: See above Reason for not recommending >/= 10 yr follow-up interval?: See above
[2025-02-18 08:13] VITALS: BP 104/68; PULSE 60; O2SAT 96
[2025-02-18 08:23] VITALS: BP 118/64; PULSE 62; O2SAT 97
[2025-02-18 08:33] VITALS: BP 103/71; PULSE 59; O2SAT 97
--- NOTE | 2025-02-18 09:10 | P.PNANES_ITS ---
[facility] Disclaimer: The information contained in this section may have been updated after the patient was seen, as this information can be updated by other users. Medical History Dermatitis History of COVID-19 Migraine Osteoporosis Hyperlipidemia Surgical History Hx of colonoscopy Family History Other Stroke Social History Smoking Status: Current every day smoker tobacco type: cigarettes packs per day: 1 second hand exposure: Yes alcohol intake: current substance use type: denies use current occupational status: employed Travel in the last 8 weeks?: Outside the [facility] housing: house caffeine: Yes [facility] Anesthesia Checklist Patient Identification Patient Identification: Arm Band Structural Data Admitted From: Home Planned Operative Procedure/s: Colonoscopy Consent for Planned Operative Procedure(s) Verified: Yes Verified Documents: Surgical Consent and History and Physical NPO Status Verified Time NPO: 00:00 Additional verifications Anesthesia Reactions: No Airway Assessment Mallampati Score:: Class II C-Spine Mobility Assessed: Yes TMJ Mobility Assessed: Yes Dentition: Good Dentition Neurological Assessment Level of Consciousness: Awake, Alert and Appropriate Anesthesia Plan Anesthesia Risk discussed: Yes Anesthesia Plan: Verified ASA Class: II Anesthesia Type: MAC
== END 2025-02-18 08:33 | disposition home or self-care (01) ==
PROVIDERS: PCP Internal Medicine Adolescent Medicine; Visit Provider Surgery
PROC: 0DJD8ZZ Inspection of Lower Intestinal Tract, Via Natural or Artificial Opening Endoscopic (ICD-10-PCS; CPT 45385; principal; 2025-02-18 07:30)
DX: Z12.11 Encounter for screening for malignant neoplasm of colon (principal); Z86.0100 Personal history of colon polyps, unspecified; D12.2 Benign neoplasm of ascending colon; K57.30 Diverticulosis of large intestine without perforation or abscess without bleeding
CPT/HCPCS: 45385; J2003; J2704; J7120

== ENCOUNTER 2025-06-24 10:31 | Day surgery (SDC) | payer BC, SELFPAY ==
[2025-06-22 16:07] VITALS: BMI 26.6
--- NOTE | 2025-06-24 06:22 | EXP.GEN.HP ---
HPI HPI HPI: Patient presents for early follow-up colonoscopy. I performed initial screening colonoscopy on her on 12/26/2023 at which time in the ascending colon there were a couple of adjacent relatively complex appearing ridge polyps. 1 was removed with cold snare and the larger polyp removed seemingly in its entirety with hot snare. 1 of these returned as tubular adenoma and 1 was a sessile serrated lesion. In the rectosigmoid region there were 3 hyperplastic polyps. She had sigmoid diverticulosis. Given the relatively complex ridge polyp in the ascending colon I had planned for 1 year follow-up colonoscopy to ensure complete removal. This was done on 02/18/2025 and this revealed possible recurrent versus new widespread flat sessile polyp in the ascending colon adjacent to the ileocecal valve. It was characterized by subtle nodular mucosa. Majority of this was removed with cold snare with residual tissue removed with biopsy forceps. Pathology revealed sessile serrated lesion. Distal to this in the ascending colon there was another area of subtle appearing nodular mucosa which was unclear if this was abnormal adenomatous tissue. Multiple biopsies were obtained with some tissue removed with cold snare and pathology once again revealed sessile serrated lesion. Discussion was held with the patient and plan was made for early follow-up colonoscopy as opposed to consideration of resection. Plan was for full evaluation of the right colon with narrowband imaging. Patient requests Sutab prep. . [facility] Disclaimer: The information contained in this section may have been updated after the patient was seen, as this information can be updated by other users. Medical History Dermatitis History of COVID-19 Migraine Osteoporosis Hyperlipidemia Surgical History Hx of colonoscopy Family History Other Stroke Social History (Updated 06/22/25 @ 16:01 by Courtney Jessica RN) Smoking Status: Current every day smoker tobacco type: cigarettes packs per day: 1 second hand exposure: Yes alcohol intake: never substance use type: denies use current occupational status: employed Travel in the last 8 weeks?: Outside the [facility] housing: house caffeine: Yes Have you lived/traveled outside [place] in past 30 days?: No Contact w/someone who lives/traveled outside [place] past 30 days?: No Exposure to someone with infectious disease in past 14 days?: No Do you have a fever (greater than 100.4 F or 38 C)?: No Have you tested positive for COVID-19?: No Exposed to someone with COVID-19 in past 14 days?: No Do you have a sore throat?: No Do you have a cough?: No Do you have any weakness?: No Do you have any diarrhea?: No Are you experiencing any unusual bleeding?: No Do you have any muscle aches/pain?: No Do you have any abdominal pain?: No Are you experiencing loss of taste or smell?: No Other Medical History Have you received the Flu Vaccine for this season: Yes Have you received the Pneumonia Vaccine: Yes Meds Home Medications and Allergies Home Medications ?Medication ?Instructions ?Recorded ?Confirmed ?Type atorvastatin 80 mg tablet (Lipitor) 80 mg PO DAILY 12/24/23 06/24/25 History cholecalciferol (vitamin D3) 50 50 mcg PO DAILY 12/24/23 06/24/25 History mcg (2,000 unit) capsule (Vitamin D3) vitamin B12 1,000 mcg-folic acid 1 tab sublingual DAILY 02/15/25 06/24/25 History 400 mcg sublingual tablet sodium sul 1.479 gram-potas ch See Rx Instructions PO PER PKG DIR 05/24/25 Rx 0.188 gram-magnes sul 0.225 gram #24 tabs tablet (Sutab) New Prescriptions to Start Prescriptions: Allergies Allergy/AdvReac Type Severity Reaction Status Date / Time Penicillins Allergy Hives Verified 03/10/25 09:14 Exam Data for Last 24 hours I & O for Last 24 hours: Intake & Output 06/21/25 06/22/25 06/23/25 06/24/25 11:59 11:59 11:59 11:59 Weight 175 lb Constitutional Constitutional: no acute distress *Routine HEENT Exam Head: Present normocephalic Eye: Present EOMI and PERRL ENT: Present mucous membranes moist *Routine Neck Exam Neck: Present supple; Absent lymphadenopathy *Routine Respiratory Exam Respiratory: Present CTA bilaterally *Routine Cardiovascular Exam Cardiovascular: Present RRR *Routine Abdominal Exam Abdominal: Present soft and normoactive bowel sounds; Absent tenderness *Routine Rectal Exam Rectal:: deferred *Routine Genitalia Exam Genitalia:: deferred *Routine Extremities Exam Extremities: Absent cyanosis, clubbing or edema *Routine Skin Exam Skin: Present warm; Absent rash *Routine Neurological Exam Neurological: Present alert and oriented X3 Assessment and Plan *Assessment and plan (1) Sessile serrated polyp of colon: Status: Acute Category: Medical Code(s): D12.6 - Benign neoplasm of colon, unspecified Plan Plan is for repeat colonoscopy with careful surveillance of the right colon with narrowband imaging and possible polypectomy.
[2025-06-24 10:44] VITALS: BP 125/79; PULSE 75; RESP 16; TEMP 36.4; O2SAT 98
[2025-06-24] MEDS: LACTATED RINGERS 1000ML 1,000 ML 50 ML IV (10:54)
--- NOTE | 2025-06-24 11:13 | P.PNANES_ITS ---
[facility] Disclaimer: The information contained in this section may have been updated after the patient was seen, as this information can be updated by other users. Medical History Dermatitis History of COVID-19 Migraine Osteoporosis Hyperlipidemia Surgical History Hx of colonoscopy Family History Other Stroke Social History (Updated 06/22/25 @ 16:01 by Courtney Jessica RN) Smoking Status: Current every day smoker tobacco type: cigarettes packs per day: 1 second hand exposure: Yes alcohol intake: never substance use type: denies use current occupational status: employed Travel in the last 8 weeks?: Outside the [facility] housing: house caffeine: Yes Have you lived/traveled outside [place] in past 30 days?: No Contact w/someone who lives/traveled outside [place] past 30 days?: No Exposure to someone with infectious disease in past 14 days?: No Do you have a fever (greater than 100.4 F or 38 C)?: No Have you tested positive for COVID-19?: No Exposed to someone with COVID-19 in past 14 days?: No Do you have a sore throat?: No Do you have a cough?: No Do you have any weakness?: No Do you have any diarrhea?: No Are you experiencing any unusual bleeding?: No Do you have any muscle aches/pain?: No Do you have any abdominal pain?: No Are you experiencing loss of taste or smell?: No [facility] Anesthesia Checklist Patient Identification Patient Identification: Arm Band and Verbal (Name & ) Structural Data Admitted From: Home Planned Operative Procedure/s: Colonoscopy Consent for Planned Operative Procedure(s) Verified: Yes Verified Documents: Surgical Consent NPO Status Verified Time NPO: 00:00 Chart Verification Results Verified: None Additional verifications Anesthesia Reactions: No Airway Assessment Mallampati Score:: Class II C-Spine Mobility Assessed: Yes TMJ Mobility Assessed: Yes Dentition: Good Dentition Neurological Assessment Level of Consciousness: Awake, Alert and Appropriate Hx Seizures: No Numbness or tingling in extremities: No Anesthesia Plan Anesthesia Risk discussed: Yes Anesthesia Plan: Verified ASA Class: II Anesthesia Type: MAC
[2025-06-24 13:05] VITALS: BP 124/79; PULSE 66; RESP 18; TEMP 36.4; O2SAT 97
--- NOTE | 2025-06-24 13:06 | P.PCN_ITS ---
Procedure: Date: 06/24/25 Patient Date of :: 1970 Procedure Performed:: Colonoscopy with removal of polypoid lesion x 2 in the ascending colon . Indications:: Patient presents for early follow-up colonoscopy. I performed initial screening colonoscopy on her on 12/26/2023 at which time in the ascending colon there were a couple of adjacent relatively complex appearing ridge polyps. 1 was removed with cold snare and the larger polyp removed seemingly in its entirety with hot snare. 1 of these returned as tubular adenoma and 1 was a sessile serrated lesion. In the rectosigmoid region there were 3 hyperplastic polyps. She had sigmoid diverticulosis. Given the relatively complex ridge polyp in the ascending colon I had planned for 1 year follow-up colonoscopy to ensure complete removal. This was done on 02/18/2025 and this revealed possible recurrent versus new widespread flat sessile polyp in the ascending colon adjacent to the ileocecal valve. It was characterized by subtle nodular m ucosa. Majority of this was removed with cold snare with residual tissue removed with biopsy forceps. Pathology revealed sessile serrated lesion. Distal to this in the ascending colon there was another area of subtle appearing nodular mucosa which was unclear if this was abnormal adenomatous tissue. Multiple biopsies were obtained with some tissue removed with cold snare and pathology once again revealed sessile serrated lesion. Discussion was held with the patient and plan was made for early follow-up colonoscopy as opposed to consideration of resection. Plan was for full evaluation of the right colon with narrowband imaging. . Performing Provider:: Balwinder Reis MD Referring Provider:: Rigoberto Gonzales MD Sedation:: MAC sedation Procedure:: Patient history was obtained and appropriate physical examination was performed. Patient's medications and allergies were reviewed. Informed consent was obtained after explaining the benefits, alternatives, and risks of the procedure including, but not limited to, bleeding, perforation, missed lesions, and adverse reaction to anesthesia medications. Patient was transported to endoscopy procedure room. Patient was connected to monitoring devices. Throughout the procedure the patient's blood pressure, pulse, and oxygen saturations were monitored continuously. Patient identification and planned procedure were verified by the staff. Patient was positioned in lateral decubitus position. Digital anorectal exam was performed. Variable stiffness Olympus colonoscope was inserted and advanced under direct visualization to the cecum. Adequacy of the colonic preparation was noted. The colonoscope was advanced a short distance into the terminal ileum. The colonoscope was then slowly withdrawn while carefully examining the color, texture, anatomy, and integrity of the mucosoa circumferentially. Within the rectum retroflexion was performed. Colonoscope was then withdrawn. Impression: Colonic preparation was good. Upon reaching the cecum with good visualization of the appendiceal orifice the colonoscope was advanced a short distance into the terminal ileum which was normal. It was withdrawn. Just distal to the ileo cecal valve there was a moderately large sessile irregular polypoid lesion within a mucosal fold. About 12 cc ultimately of Geno view was injected submucosally to raise and delineate the lesion. Portions were removed using hot snare with small amount of peripheral tissue removed with cold cutting snare and some residual tissue removed with biopsy forceps. This was relatively widespread area of mucosal resection in a piecemeal fashion. Mucosa was partially reapproximated with several firings of the mantis device and a Hemoclip. Just distal to this lesion about 1 cc of Regina ink was injected submucosally to avery the area. Just distal to this another similar, but smaller, sessile irregular subtle lesion was encountered. This was removed in a piecemeal fashion using hot snare followed by cold snare and biopsy forceps. It was difficult to discern due to some spasms and swelling of the colon and due to the fact that it was within the mucosal fold but it appeared as though lesion was removed. Colonoscope was then withdrawn through the remainder of the colon there were some rare sigmoid diverticuli. Retroflexion was performed. Colonoscope was withdrawn . Findings:: Ascending polypoid lesions as noted above. Rare sigmoid diverticuli. Recommendations:: Follow-up management will depend on patient's clinical course post procedure and ultimately pathology. If lesions are benign likely will need repeat colonoscopy in 6 months to assess for complete removal and rule out early recurrence. However, there is a possibility she could require resection. Complications:: None immediately apparent Estimated blood obtained (mL): 2 Colonoscopy Component Colonoscopy Component Was a colonoscopy performed during today's procedure?: Yes Recommended follow up colonoscopy of at least 10 years?: No If no, follow up colonoscopy recommended in ___ years?: See above Reason for not recommending >/= 10 yr follow-up interval?: See above
[2025-06-24 13:15] VITALS: BP 128/71; PULSE 70; RESP 18; TEMP 36.1; O2SAT 97
[2025-06-24 13:25] VITALS: BP 117/76; PULSE 61; RESP 18; TEMP 36.4; O2SAT 61
[2025-06-24 13:35] VITALS: BP 124/86; PULSE 64; RESP 18; TEMP 36.4; O2SAT 97
[2025-06-24 14:05] VITALS: BP 122/78; PULSE 64; RESP 18; TEMP 36.4; O2SAT 97
== END 2025-06-24 14:05 | disposition home or self-care (01) ==
PROVIDERS: PCP Internal Medicine Adolescent Medicine; Visit Provider Surgery
PROC: 0DJD8ZZ Inspection of Lower Intestinal Tract, Via Natural or Artificial Opening Endoscopic (ICD-10-PCS; CPT 45380; principal; 2025-06-24 11:30)
DX: E78.5 Hyperlipidemia, unspecified (principal); D12.2 Benign neoplasm of ascending colon; K63.5 Polyp of colon; G43.909 Migraine, unspecified, not intractable, without status migrainosus; M81.0 Age-related osteoporosis without current pathological fracture; F17.210 Nicotine dependence, cigarettes, uncomplicated; Z88.0 Allergy status to penicillin; Z79.899 Other long term (current) drug therapy
CPT/HCPCS: 45380; 45385; C1760; J2003; J2704; J7120